=== PATIENT | male | born 1980 | race Caucasian/White ===

== ENCOUNTER 2016-11-30 08:15 | Emergency (ER) | payer SELFPAY ==
[2016-11-30 09:36] LABS: BASOPHIL % 0.7 % (0-2); PLATELET COUNT 310 x10^3mcL (130-400); RED CELL DISTRIBUTION WIDTH 13.4 % (11.5-14.5)
[2016-11-30 09:49] LABS: AMPHETAMINE QUAL UR NONE DETECTED (NEG <=1000)
[2016-11-30 09:49] LABS: CARBON DIOXIDE 30.6 mmol/L (21-32); CHLORIDE SERUM 102 mmol/L (98-107); GFR1 > 60 mL/min; GLUCOSE SERUM 100 mg/dL (74-106); POTASSIUM SERUM 3.7 mmol/L (3.5-5.1); SODIUM SERUM 139 mmol/L (136-145)
[2016-11-30 09:53] LABS: ALBUMIN 3.9 g/dL (3.4-5.0); ALKALINE PHOSPHATASE 76 U/L (46-116); ALT/SGPT 27 U/L (16-63); AST/SGOT 21 U/L (15-37); BILIRUBIN TOTAL 0.4 mg/dL (0.20-1.00); CHOLESTEROL 260 mg/dL (<200); TOTAL PROTEIN, SERUM 8.1 g/dL (6.4-8.2)
[2016-11-30 11:46] VITALS: BP 127/42
== END 2016-11-30 11:46 | disposition home or self-care (01) ==
LOC: ED 08:15
PROVIDERS: Specialist
DX: R20.2 Paresthesia of skin (principal); R00.2 Palpitations; F17.200 Nicotine dependence, unspecified, uncomplicated
CPT/HCPCS: 36415; 83880; G0480; Q0092

== ENCOUNTER 2017-08-16 05:24 | Emergency (ER) | payer MEDICAID ==
[2017-08-16 06:23] VITALS: BP 137/80
== END 2017-08-16 06:23 | disposition home or self-care (01) ==
LOC: ED 05:24
DX: F41.0 Panic disorder [episodic paroxysmal anxiety] (principal)

== ENCOUNTER 2020-05-18 00:57 | Emergency (ER) | payer MEDICAID ==
[~2020-05-18] VITALS: Ht 170.2 cm; Wt 89.4 kg
[2020-05-18 01:12] VITALS: Ht 170.2 cm; Wt 89.4 kg
[2020-05-18 01:39] LABS: microscopic required? NO
[2020-05-18 01:47] LABS: UA SPECIFIC GRAVITY <=1.005 (1.005-1.035); urine erythrocyte NEGATIVE (NEGATIVE)
[2020-05-18 01:50] LABS: BASOPHIL % 0.7 % (0.2-1.5); PLATELET COUNT 357 x10^3mcL (152-348)
[2020-05-18 01:56] LABS: CALCIUM 9.3 mg/dL (8.5-10.1); CARBON DIOXIDE 28.3 mmol/L (21-32); CHLORIDE SERUM 98 mmol/L (98-107); CREATININE SERUM 1.1 mg/dL (0.7-1.3); GFR1 > 60 mL/min; GLUCOSE SERUM 133 mg/dL (74-106); POTASSIUM SERUM 3.5 mmol/L (3.5-5.1); SODIUM SERUM 137 mmol/L (136-145)
[2020-05-18 02:00] LABS: ALBUMIN 3.9 g/dL (3.4-5.0); ALKALINE PHOSPHATASE 104 U/L (46-116); ALT/SGPT 24 U/L (16-63); AST/SGOT 17 U/L (15-37); BILIRUBIN TOTAL 0.22 mg/dL (0.20-1.00); HDL CHOLESTEROL 42 mg/dL (40-60); LIPASE 123 IU/L (73-393); TOTAL PROTEIN, SERUM 8.2 g/dL (6.4-8.2)
[2020-05-18 02:02] LABS: CHOLESTEROL 271 mg/dL (<200); CHOLESTEROL/HDL RATIO 6.5; TRIGLYCERIDES 336 mg/dL (<150)
[2020-05-18 02:02] LABS: AMPHETAMINE QUAL UR NONE DETECTED (See below)
[2020-05-18 02:08] LABS: T3 TOTAL 1.49 ng/mL
[2020-05-18 02:12] LABS: FREE T4 1.04 ng/dL (0.76-1.46); FREE THYROXINE INDEX 3.8 ug/dL (1.4-4.5); T4(THYROXINE) 11.1 ug/dL (4.7-13.3)
[2020-05-18] MEDS ORDERED: ATIVAN1 MG PO (02:16)
[2020-05-18 02:32] VITALS: BP 144/85
== END 2020-05-18 02:32 | disposition home or self-care (01) ==
LOC: ED 00:57
PROVIDERS: Specialist
DX: R07.89 Other chest pain (principal)
CPT/HCPCS: 83880; 84439